=== PATIENT | female | born 2000 ===

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

== ENCOUNTER 2022-11-30 07:58 | Emergency (ER) | payer OTHER, SELFPAY ==
--- NOTE | ~2022-11-30 | CT_ITS ---
EXAMINATION: CT abdomen pelvis w IV con CLINICAL INFORMATION: Reason for Exam RLQ pain, r/o acute luis COMPARISON: No prior CT available for comparison. TECHNIQUE: Multidetector volumetric imaging was performed from the superior aspect of the liver through the pubic symphysis 85 mL of Omnipaque 350 injected Sagittal and coronal reformatted images were obtained on the technologist's workstation. This CT examination was performed using dose optimization techniques as appropriate, variously including the following: *Automated exposure control *Adjustment of mA and/or kV according to patient size (this includes techniques or standardized protocols for targeted exams where dose is matched to indication/reason for exam; i.e. extremities or head) *Use of iterative reconstruction technique DLP: 254 mGy-cm FINDINGS: LOWER THORAX: Included lung bases are clear. HEPATOBILIARY: No focal hepatic lesions. No biliary ductal dilatation. GALLBLADDER: Gallbladder unremarkable. SPLEEN: Spleen is normal in size. PANCREAS: No focal mass or ductal dilatation. STOMACH AND GASTROINTESTINAL TRACT: Stomach is grossly unremarkable. There is no bowel distention or thickening. No definite evidence of acute appendicitis, there is a fluid-filled blind loop structure in the right lower quadrant likely a normal appendix, Malone image marked. ADRENALS: No adrenal nodules. KIDNEYS/URETERS: There are 2 large cyst in the upper pole right kidney measuring up to 5.5 and 5.7 cm, both are simple cyst Bosniak class I almost certainly benign, no follow-up is required. URINARY BLADDER: Partially decompressed. PELVIC VISCERA: Unremarkable PERITONEUM: No free air or fluid. LYMPH NODES: No lymphadenopathy. VASCULAR:Abdominal aorta normal in size, no aneurysm found. BONES, ABDOMINAL WALL AND SOFT TISSUES: Age-appropriate changes of the spine and skeletal system, no destructive osteolytic or osteosclerotic bone lesion found CT/CT abdomen pelvis w IV con IMPRESSION: * Although the appendix was difficult to definitely visualize, No CT evidence of acute appendicitis, there is a air-filled blind loop structure in the right lower quadrant likely a normal appendix, Malone image marked. * If patient's symptoms worsened in the next 24 to 48 hours, May consider correlation with follow-up CT pelvis with oral and IV contrast..
[2022-11-30 08:00] VITALS: BP 115/73; PULSE 96; RESP 18; TEMP 36.4; O2SAT 100; BMI 18.3
--- NOTE | 2022-11-30 08:44 | ED.ABDPAIN ---
HPI - Abdominal Pain General Chief Complaint: Abdominal Pain Stated Complaint: abd pain Time Seen by Provider: 11/30/22 08:43 Source: patient Mode of arrival: ambulatory Limitations: no limitations History of Present Illness HPI narrative: 22yo female w/ history of renal colic here with complaints of right sided abdominal pain since 0200. Patient reports she had similar pain one month ago and was seen at . She had negative STI testing and was treated for a pelvic infection with a course of doxycycline and felt improved. Pain began again this morning and patient had one episode of vomiting. No fevers, chills, urinary symptoms. Patient has had irregular menses x 4 months since having a nexplanon placed. 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 Currently having vaginal bleeding. No vaginal discharge, rashes, lesions. Has been sexually active with one male partner. No new sexual partners. Related Data Previous Rx's Medication Instructions Recorded erythromycin 5 mg/gram (0.5 %) eye 0.5 inch ophthalmic (eye) TID #1 g 05/20/20 ointment Allergies Allergy/AdvReac Type Severity Reaction Status Date / Time No Known Allergies Allergy Verified 11/30/22 08:06 Review of Systems Review of Systems Yes all other systems are reviewed and are negative Constitutional: Reports no additional constitutional complaints, Denies body ache(s), Denies chills, Denies fever(s), Denies headache(s) and Denies weakness Eyes: Reports no additional eye complaints and Denies change in vision Reports system reviewed and no additional complaints, except as documented, Denies dizziness, Denies headache(s), Denies nasal congestion, Denies nasal discharge and Denies neck pain Cardiovascular: Reports no additional cardiovascular complaints, Denies chest pain, Denies leg edema and Denies dyspnea Respiratory: Reports no additional respiratory complaints, Denies cough and Denies dyspnea Gastrointestinal: Reports no additional gastrointestinal complaints, Reports abdominal pain, Denies diarrhea, Reports nausea and Reports vomiting Genitourinary: Reports no additional female genitourinary complaints, Reports abnormal vaginal bleeding, Denies dysuria, Denies pelvic pain, Denies urinary incontinence, Denies urinary hesitancy, Denies urinary urgency and Denies vaginal discharge Musculoskeletal: Reports no additional musculoskeletal complaints, Denies back pain, Denies arthralgias, Denies joint swelling, Denies neck pain, Denies numbness and Denies tingling Skin/Breast: Reports system reviewed and no additional complaints, except as docu and Denies rash Reports system reviewed and no additional complaints, except as documented, Denies dizziness, Denies headache(s), Denies numbness, Denies tingling and Denies weakness [facility] Past Medical History Attestation statement: The following information was validated with the patient. Source: old records reviewed and nursing notes reviewed Medical History No active medical problems Social History Social History Alcohol intake: never Advance Directives: No Advance Directives Information Provided: No Physical Exam ED Vital Signs: Vital Signs - 24 hr 11/30/22 08:00 11/30/22 11:02 Temperature 97.5 F 98.2 F Pulse Rate 96 84 Respiratory Rate 18 18 Blood Pressure 115/73 124/49 L Pulse Oximetry 100 98 Oxygen Delivery Method Room Air Room Air BMI result Body Mass Index 18.3 Const General: cooperative, healthy appearing, comfortable and no acute distress Orientation/consciousness: patient oriented x3 Limitations: no limitations HENMT Head: Yes normal to inspection Ears: hearing grossly normal bilaterally Eyes General: appearance normal, both eyes and all related structures Pupils: Equal, round and reactive pupils present Neck Neck: Yes normal visual inspection and Yes full ROM Chest Chest palpation & inspection: normal inspection of the chest Resp Effort & Inspection: normal respiratory effort Auscultation: clear to auscultation bilaterally Cardio Rate: regular rate Rhythm: regular rhythm Peripheral pulses: Peripheral pulses 2+ throughout GI Inspection: Yes normal to inspection and No distended Palpation (GI): Soft to palpation and Tenderness to palpation present (GI) (RLQ/RUQ_no rebound or guarding ) Auscultation: normal bowel sounds General: Yes no CVA tenderness Back/Spine/Pelvis Back: no CVA tenderness Thoracic/Lumbar Spine: thoracic and lumbar spine normal to inspection Skin General skin exam: no rashes or lesions noted Neuro General: patient oriented x3 and moves all extremities Cranial nerves: Yes Equal, round and reactive pupils present Cognition (Neuro): normal cognition Gait exam (Neuro): Normal gait present Extrem General: Yes normal to inspection Course Course Course Narrative: 1245-CT is unremarkable. Patient reports pain overall is improving but still has tenderness in the right lower abdomen. I will order a pelvic ultrasound to evaluate further. Reevaluation(s) Reevaluation #1: 1315-Patient does not want wait for US and wants to go home to sleep. Aware we cannot rule out ovarian cyst, ovarian torsion, TOA. Patient aware she can return at any time for re-evaluation. Medical Decision Making Medical Decision Making [facility] Narrative: 22 yo female with history of renal colic here with complaints of right sided AP which began at 0200 with vomiting. Treated for what sounds like PID one month ago with similar pain (completed doxycycline). Has had irregular menses for months after having nexplanon placed. On exam patient has TTP to RLQ with no rebound or guarding Will obtain labs, UA, CT, provide analgesia/antiemetic/IVF Differential Diagnosis Differential Diagnoses: The differential diagnosis associated with the presentation includes appendicitis, PID, ectopic , renal colic, pyelo, low concern for ovarian torsion Lab Data [facility] Lab Attestation statement: I reviewed the patient's lab results. 11/30/22 09:06 11/30/22 09:06 Labs: Lab Results 11/30/22 11/30/22 11/30/22 Range/Units 09:06 09:06 09:06 WBC 6.6 (4.8-10.8) X10*3/uL RBC 4.06 L (4.20-5.50) X10*6/uL Hgb 12.0 (12.0-16.0) g/dl Hct 36.3 L (37.0-47.0) % MCV 89.4 (80.0-98.0) fL MCH 29.6 (27.0-33.0) pg MCHC 33.1 (31.0-35.0) g/dl RDW 12.7 (11.0-16.0) % Plt Count 198 (160-400) X10*3/uL MPV 11.0 (9.4-12.3) fL Immature Gran % (Auto) 0.3 (0.0-0.4) % Neut % (Auto) 81.5 H (45-73) % Lymph % (Auto) 13.7 L (20-40) % Woodson % (Auto) 3.8 (2-11) % Eos % (Auto) 0.2 (0-4) % Baso % (Auto) 0.5 (0-2) % Lymph # (Auto) 0.9 L (1.2-4.9) X10*3/uL Woodson # (Auto) 0.3 (0.1-1.2) X10*3/uL Eos # (Auto) 0.0 (0.0-0.4) X10*3/uL Baso # (Auto) 0.0 (0.0-0.2) X10*3/uL Abs Immat Gran (auto) 0.02 (0.00-0.03) X10*3/uL Absolute Neuts (auto) 5.4 (2.0-8.3) x10*3/uL Absolute Nucleated RBC 0.000 (0.0-0.012) X10*3/uL Nucleated RBC % (auto) 0.0 (0.0-0.2) /100WBC Sodium 139 (135-145) mmol/L Potassium 4.0 (3.3-5.1) mmol/L Chloride 108 (96-108) mmol/L Carbon Dioxide 21 L (22-29) mmol/L Anion Gap 14 (12-20) BUN 14 (9-16) mg/dL Creatinine 0.69 (0.5-1.4) mg/dL Estim Creat Clear Calc 93.1 Estimated GFR > 60 Random Glucose 94 (60-115) mg/dL Calcium 9.4 (8.4-10.2) mg/dL Total Bilirubin 0.6 (0.0-1.0) mg/dL Direct Bilirubin 0.2 (0.0-0.5) mg/dL AST 16 (5-31) U/L ALT 11 (0-31) U/L Alkaline Phosphatase 64 (39-117) U/L Total Protein 6.9 (6.5-8.0) g/dL Albumin 4.2 (3.5-5.0) g/dL Lipase 17 (8-78) U/L Urine Color Urine Appearance Urine pH (5.0-9.0) Ur Specific Quincy (1.005-1.025) Urine Protein (Neg-Trace) mg/dL Urine Glucose (UA) (Negative) mg/dL Urine Ketones (Negative) mg/dL Urine Blood (Negative) Urine Nitrite (Negative) Ur Leukocyte Esterase (Negative) Urine RBC (0-2) /HPF Urine WBC (0-5) /HPF Ur Squamous Epith Cells (0-2) /HPF Urine Bacteria (None Seen) Hyaline Casts (0-2) /LPF Urine Test (NEGATIVE) Chlam trachomat DNA PCR (Not Detect.) N.gonorrhoeae DNA (PCR) (Not Detect.) 11/30/22 11/30/22 11/30/22 Range/Units 09:15 09:15 11:51 WBC (4.8-10.8) X10*3/uL RBC (4.20-5.50) X10*6/uL Hgb (12.0-16.0) g/dl Hct (37.0-47.0) % MCV (80.0-98.0) fL MCH (27.0-33.0) pg MCHC (31.0-35.0) g/dl RDW (11.0-16.0) % Plt Count (160-400) X10*3/uL MPV (9.4-12.3) fL Immature Gran % (Auto) (0.0-0.4) % Neut % (Auto) (45-73) % Lymph % (Auto) (20-40) % Woodson % (Auto) (2-11) % Eos % (Auto) (0-4) % Baso % (Auto) (0-2) % Lymph # (Auto) (1.2-4.9) X10*3/uL Woodson # (Auto) (0.1-1.2) X10*3/uL Eos # (Auto) (0.0-0.4) X10*3/uL Baso # (Auto) (0.0-0.2) X10*3/uL Abs Immat Gran (auto) (0.00-0.03) X10*3/uL Absolute Neuts (auto) (2.0-8.3) x10*3/uL Absolute Nucleated RBC (0.0-0.012) X10*3/uL Nucleated RBC % (auto) (0.0-0.2) /100WBC Sodium (135-145) mmol/L Potassium (3.3-5.1) mmol/L Chloride (96-108) mmol/L Carbon Dioxide (22-29) mmol/L Anion Gap (12-20) BUN (9-16) mg/dL Creatinine (0.5-1.4) mg/dL Estim Creat Clear Calc Estimated GFR Random Glucose (60-115) mg/dL Calcium (8.4-10.2) mg/dL Total Bilirubin (0.0-1.0) mg/dL Direct Bilirubin (0.0-0.5) mg/dL AST (5-31) U/L ALT (0-31) U/L Alkaline Phosphatase (39-117) U/L Total Protein (6.5-8.0) g/dL Albumin (3.5-5.0) g/dL Lipase (8-78) U/L Urine Color Dark Yellow Urine Appearance Clear Urine pH 7.5 (5.0-9.0) Ur Specific Quincy >= 1.030 H (1.005-1.025) Urine Protein 30 (1+) H (Neg-Trace) mg/dL Urine Glucose (UA) Negative (Negative) mg/dL Urine Ketones 80 (Negative) mg/dL Urine Blood Moderate (2+) H (Negative) Urine Nitrite Negative (Negative) Ur Leukocyte Esterase Trace H (Negative) Urine RBC >20 H (0-2) /HPF Urine WBC 0-5 (0-5) /HPF Ur Squamous Epith Cells 3-5 (0-2) /HPF Urine Bacteria None Seen (None Seen) Hyaline Casts 3-5 (0-2) /LPF Urine Test NEGATIVE (NEGATIVE) Chlam trachomat DNA PCR NOT DETECTED (Not Detect.) N.gonorrhoeae DNA (PCR) NOT DETECTED (Not Detect.) Independent Interpretation I performed an independent interpretation of an: CT Scan Interpretation: I independently reviewed the CT and agree with the rad report Radiology Impression Discussion of test interpretation with radiology: I have reviewed the radiologist's reading. Radiologist Impression: FINDINGS: LOWER THORAX: Included lung bases are clear. HEPATOBILIARY: No focal hepatic lesions. No biliary ductal dilatation. GALLBLADDER: Gallbladder unremarkable. SPLEEN: Spleen is normal in size. PANCREAS: No focal mass or ductal dilatation. STOMACH AND GASTROINTESTINAL TRACT: Stomach is grossly unremarkable. There is no bowel distention or thickening. No definite evidence of acute appendicitis, there is a fluid-filled blind loop structure in the right lower quadrant likely a normal appendix, Malone image marked. ADRENALS: No adrenal nodules. KIDNEYS/URETERS: There are 2 large cyst in the upper pole right kidney measuring up to 5.5 and 5.7 cm, both are simple cyst Bosniak class I almost certainly benign, no follow-up is required. URINARY BLADDER: Partially decompressed. PELVIC VISCERA: Unremarkable PERITONEUM: No free air or fluid. LYMPH NODES: No lymphadenopathy. VASCULAR:Abdominal aorta normal in size, no aneurysm found. BONES, ABDOMINAL WALL AND SOFT TISSUES: Age-appropriate changes of the spine and skeletal system, no destructive osteolytic or osteosclerotic bone lesion found CT/CT abdomen pelvis w IV con IMPRESSION: ? *? Although the appendix was difficult to definitely visualize, No CT evidence of acute appendicitis, there is a air-filled blind loop structure in the right lower quadrant likely a normal appendix, Malone image marked. ? *? If patient's symptoms worsened in the next 24 to 48 hours, May consider correlation with follow-up CT pelvis with oral and IV contrast.. Medications Administered Discontinued Medications Generic Name Dose Route Start Last Admin Trade Name Freq PRN Reason Stop Dose Admin Sodium Chloride 1,000 mls @ 999 mls/hr 11/30/22 08:57 11/30/22 12:53 Ns IV 11/30/22 09:57 Infused .Q1H1M STA Infusion Iohexol 85 ml 11/30/22 11:02 11/30/22 11:02 Iohexol 350 Mg/Ml 100 Ml Infus..Btl IV 11/30/22 11:03 85 ml ONCE ONE Administration Ketorolac Tromethamine 30 mg 11/30/22 08:57 11/30/22 10:18 Ketorolac Tromethamine 30 Mg/Ml Vial IVPUSH 11/30/22 08:58 30 mg ONCE ONE Administration Ondansetron HCl 4 mg 11/30/22 08:57 11/30/22 10:18 Ondansetron Hcl 4 Mg/2 Ml Vial IVPUSH 11/30/22 08:58 4 mg ONCE ONE Administration Discharge Plan Discharge Clinical Impression: Abdominal pain Patient Disposition: Left Against Medical Advice Instructions: Abdominal Pain (ED), Against Medical Advice (ED) Additional Instructions: Our advice to you was to have an ultrasound of your ovaries, fallopian tubes and uterus today to rule out ovarian cyst, twisting of the ovaries, or an infection. You did not want to do this. We cannot tell you a cause for your pain without ruling these things out. Please return at any time Take motrin or tylenol for pain warm compresses to the abdomen as needed Prescriptions: No Action erythromycin 5 mg/gram (0.5 %) ointment 0.5 inch ophthalmic (eye) TID Qty: 1 0RF Referrals: Physician,Unknown J [Primary Care Provider] - 1 week Stand Alone Forms: Against Medical Advice Interventions: ED Discharge Assessment Last Done: 11/30/22 13:31 Discharge Date/Time: 11/30/22 13:31
--- OUTSIDE RECORDS SUMMARY | 2022-11-30 09:01 | XMS_ITS | Continuity of Care Document ---
Author Name Unknown Organization [facility] ter Address [address] [place] [id number]- Care Team Providers Care Grappler Name Role Phone Mey Dick MD Primary Care Physician Encounter [facility] [place] Date(s): 06/04/20 - 06/04/[address] [address]- Discharge Disposition: A-D/C Home Attending Physician: Grzegorz Booth MD Admitting Physician: Grzegorz Booth MD Referring Physician: Not on Staff, Referring MD Allergies, Adverse Reactions, Alerts Substance Reaction Severity Status NKA Active Problem List Condition Effective Dates Status Health Status Inform ant Bruising(Confirmed) Active Results Radiology Reports * Exam Date Time Procedure Performing Provider Status 06/04/20 10:56 AM Abdomen AP Olivier, Lee; Auth (Veri fied) Notes: (Abdomen AP) Reason For Exam: Pain RESULT: XR Abdomen AP XR Abdomen AP INDICATION/CLINICAL QUESTION: pt with 3 days of abd pain and increased GERD symptoms and assoc CP at night. Had foul smelling urine and burning after urination 3 days ago, on abd from PCP. Reason: Pain; COMPARISON: None FINDINGS: Normal bowel gas pattern. No evidence of obstruction. Gas throughout the colon with a small amount of stool in the rectosigmoid region. No evidence of pneumoperitoneum. No organomegaly, masses or calcifications. No acute bone findings. IMPRESSION: Nonobstructive bowel gas pattern. WSN: [id number] Ordering Physician: Gera Palma Dictated By: Stevo Alexander MD Dictated Date/Time: 06/04/20 10:59 a Reviewed By: Stevo Alexander MD Signed By: Stevo Alexander MD Signed Date/Time: 06/04/20 10:59 am Transcribed By: CSB Transcribed Date/Time: 06/04/20 10:58 am Vital Signs Most recent to oldest [Reference Range]: 1 2 3 Oxygen Saturation [94-100 %] 100 % (06/04/20 6:56 PM) 100 % (06/04/20 1:36 PM) 100 % (06/04/20 9:53 AM) Pulse Rate [55-90 bpm] 85 bpm (06/04/20 6:56 PM) 89 bpm (06/04/20 1:36 PM) 91 bpm *H* (06/04/20 9:53 AM) Blood Pressure [71-110/30-71 mm Hg] 128/59mm Hg *H* (06/04/20 6:56 PM) 128/48mm Hg *H* (06/04/20 1:36 PM) 127/68mm Hg *H* (06/04/20 9:53 AM) Respiratory Rate [16-30 br/min] 22 br/min (06/04/20 6:56 PM) 17 br/min (06/04/20 1:36 PM) 18 br/min (06/04/20 9:53 AM) Temperature [96.8-100.4 DegF] 98.5 DegF (06/04/20 6:56 PM) 98.8 DegF (06/04/20 1:36 PM) 99.2 DegF (06/04/20 9:53 AM) Mode of Delivery (Oxygen) Room air (06/04/20 6:56 PM) Room air (06/04/20 1:36 PM) Room air (06/04/20 9:53 AM) Blood pressure sites Arm, right (06/04/20 6:56 PM) Arm, right (06/04/20 1:36 PM) Arm, left (06/04/20 9:53 AM) Temperature Route Oral (06/04/20 6:56 PM) Oral (06/04/20 1:36 PM) Oral (06/04/20 9:53 AM)
--- OUTSIDE RECORDS SUMMARY | 2022-11-30 09:01 | XMS_ITS | Continuity of Care Document ---
Author Name Unknown Organization [facility] Address [address] [place] [id number]- Care Team Providers Care Water Resources Technical Officer Name Role Phone Mayelin CAGE, Mey Paz Primary Care Physician Encounter [facility] [place] Date(s): 07/24/20 - 07/24/[address] [address]- Discharge Disposition: A-D/C Walkout Attending Physician: Not on Staff, Attending MD Admitting Physician: Not on Staff, Admitting MD Referring Physician: Not on Staff, Referring MD Allergies, Adverse Reactions, Alerts Substance Reaction Severity Status NKA Active Problem List Condition Effective Dates Status Health Status Inform ant Bruising(Confirmed) Active Vital Signs Most recent to oldest [Reference Range]: 1 2 Oxygen Saturation [94-100 %] 100 % (07/24/20 11:15 AM) 100 % (07/24/20 10:53 AM) Pulse Rate [55-90 bpm] 91 bpm *H* (07/24/20 11:15 AM) 96 bpm *H* (07/24/20 10:53 AM) Blood Pressure [71-110/30-71 mm Hg] 123/ 74mm Hg *H* (07/24/20 11:15 AM) Respiratory Rate [16-30 br/min] 14 br/mi n *L* (07/24/20 11:15 AM) Temperature [96.8-100.4 DegF] 98.3 DegF (07/24/20 11:15 AM) Mode of Delivery (Oxygen) Room air (07/24/20 11:15 AM) Room air (07/24/20 10:53 AM) Blood pressure sites Arm, left (07/24/20 11:15 AM) Temperature Route Oral (07/24/20 11:15 AM)
[2022-11-30 09:14] LABS: MANUAL DIFF FLAG NO
[2022-11-30 09:24] LABS: Appearance Urine Clear; Color Urine Dark Yellow; Glucose Urine UA Negative (Negative); Leukocyte Esterase Urine Trace (Negative); Nitrite Urine Negative (Negative); PH 7.5 (5.0-9.0); Specific Gravity - Urine >= 1.030 (1.005-1.025); UMIC TRIGGER UACC YES; Urine Blood Moderate (2+) (Negative); Urine Ketones 80 mg/dL (Negative); Urine Protein 30 (1+) mg/dL (Neg-Trace)
[2022-11-30 09:27] LABS: Bacteria Urine None Seen (None Seen); RBC Urine >20 /HPF (0-2); WBC Urine 0-5 /HPF (0-5)
[2022-11-30 09:28] LABS: Basophils Percent Auto 0.5 % (0-2); Eosinophils Percent Auto 0.2 % (0-4); Hematocrit 36.3 % (37.0-47.0); Imm Gran Abs Auto 0.02 X10*3/uL (0.00-0.03); Imm Gran Pct Auto 0.3 % (0.0-0.4); Lymphocytes Absolute Auto 0.9 X10*3/uL (1.2-4.9); Lymphocytes Percent Auto 13.7 % (20-40); Mean Corpuscular HGB Conc 33.1 g/dl (31.0-35.0); Mean Corpuscular Hemoglobin 29.6 pg (27.0-33.0); Mean Corpuscular Volume 89.4 fL (80.0-98.0); Monocytes Absolute Auto 0.3 X10*3/uL (0.1-1.2); Monocytes Percent Auto 3.8 % (2-11); Neutrophils Absolute Auto 5.4 x10*3/uL (2.0-8.3); Neutrophils Percent Auto 81.5 % (45-73); Platelet Count 198 X10*3/uL (160-400); Red Blood Count 4.06 X10*6/uL (4.20-5.50); Red Cell Distribution Width 12.7 % (11.0-16.0); White Blood Count 6.6 X10*3/uL (4.8-10.8)
[2022-11-30 09:29] LABS: Anion Gap 14 (12-20); Blood Urea Nitrogen 14 mg/dL (9-16); Calcium 9.4 mg/dL (8.4-10.2); Carbon Dioxide 21 mmol/L (22-29); Chloride 108 mmol/L (96-108); Creatinine Clr Calc Pharmacy 93.1; Estimated Glomerular Filt Rate > 60; Glucose Random 94 mg/dL (60-115); Lipase 17 U/L (8-78); Sodium 139 mmol/L (135-145)
[2022-11-30 09:30] LABS: Alanine Aminotransferase 11 U/L (0-31); Albumin Level 4.2 g/dL (3.5-5.0); Alkaline Phosphatase 64 U/L (39-117); Aspartate Amino Transferase 16 U/L (5-31); Bilirubin Direct 0.2 mg/dL (0.0-0.5); Bilirubin Total 0.6 mg/dL (0.0-1.0); Total Protein 6.9 g/dL (6.5-8.0)
[2022-11-30 09:39] LABS: UPreg QC Valid YES; Urine Pregnancy NEGATIVE (NEGATIVE)
[2022-11-30] MEDS: 0.9 % Sodium Chloride 1,000 ML 999 ML IV (10:18)
[2022-11-30] MEDS: ondansetron HCL 4 MG/2 ML VIAL IVPUSH (10:18)
[2022-11-30] MEDS: Ketorolac Tromethamine 30 MG/ML VIAL IVPUSH (10:18)
[2022-11-30 11:02] VITALS: BP 124/49; PULSE 84; RESP 18; TEMP 36.8; O2SAT 98
[2022-11-30] MEDS: iohexoL 350 MG/ML 100 ML INFUS..BTL 85 ML IV (11:02)
[2022-11-30 13:46] LABS: CT PCR NOT DETECTED (Not Detect.); NG PCR NOT DETECTED (Not Detect.)
== END 2022-11-30 13:31 | disposition left against medical advice (07) ==
PROVIDERS: Nurse Practitioner Family; Emergency Provider Emergency Medicine
DX: R10.31 Right lower quadrant pain (principal)
CPT/HCPCS: 0353U; 36415; 74177; 80048; 80076; 81001; 81025; 83690; 85025; 96361; 96374; 96375; 99284; J1885; J2405; Q9967